=== PATIENT | female | born 1965 | race Caucasian/White ===

== ENCOUNTER → 2017-10-01 15:27 | Outpatient (REF) | payer OTHER, SELFPAY ==
[2017-10-01 18:51] LABS: Amphetamine/Metha Screen,Urine Negative ng/mL (<1000); Barbiturates Screen,Urine Negative ng/mL (<200); Benzodiazepines Screen,Urine Negative ng/mL (200); Cannabinoid Screen,Urine Negative ng/mL (<50); Cocaine Screen,Urine Negative ng/g (<300); Methadone Screen,Urine Negative ng/mL (<300); Opiate Screen,Urine Negative ng/mL (<300); Phencyclidine Screen,Urine Negative ng/mL (<25)
== END ==
LOC: LAB 15:27
PROVIDERS: Visit Provider Nurse Practitioner Family
DX: Z79.899 Other long term (current) drug therapy (principal)
CPT/HCPCS: 80305

== ENCOUNTER → 2019-03-19 17:38 | Outpatient (CLI) | payer OTHER, SELFPAY ==
[2019-03-19 19:32] LABS: Basophils # 0.1 K/mm3 (0-0.2); Basophils % 0.8 % (0.1-2.0); Eosinophils # 0.1 K/mm3 (0.0-0.4); Eosinophils % 0.7 % (0.1-12.0); Hematocrit 40.1 % (37.0-47.0); Hemoglobin 12.9 g/dL (12.2-16.2); Lymphocytes # 3.3 K/mm3 (0.7-4.5); Lymphocytes % 29.2 % (10-50); Mean Corpuscular HGB Conc 32.2 g/dL (31.8-35.4); Mean Corpuscular Hemoglobin 29.9 pg (27.0-31.2); Mean Corpuscular Volume 92.7 fl (81-99); Monocytes # 0.6 K/mm3 (0.1-1.0); Monocytes % 5.1 % (1.7-9.3); Neutrophils # 7.3 K/mm3 (1.8-7.8); Neutrophils % 64.2 % (37.0-80.0); Platelet Count 316 K/mm3 (142-424); Red Blood Count 4.33 M/mm3 (4.20-5.40); Red Cell Distribution Width 13.3 % (11.5-17.5); White Blood Count 11.4 K/mm3 (4.8-10.8)
[2019-03-19 20:37] LABS: Amphetamine/Metha Screen,Urine Negative ng/mL (<1000); Barbiturates Screen,Urine Negative ng/mL (<200); Benzodiazepines Screen,Urine Negative ng/mL (<200); Cannabinoid Screen,Urine Negative ng/mL (<50); Cocaine Screen,Urine Negative ng/mL (<300); Methadone Screen,Urine Negative ng/mL (<300); Opiate Screen,Urine Negative ng/mL (<300); Phencyclidine Screen,Urine Negative ng/mL (<25)
[2019-03-19 21:02] LABS: Alanine Aminotransferase 25 U/L (12-78); Albumin Level 3.7 gm/dL (3.4-5.0); Alkaline Phosphatase 72 U/L (46-116); Anion Gap 16.1 mEq/L (5-15); Aspartate Amino Transferase 14 U/L (15-37); Bilirubin,Total 0.3 mg/dL (0.2-1.0); Blood Urea Nitrogen 19 mg/dL (7-18); Calcium 9.3 mg/dL (8.5-10.1); Carbon Dioxide 23 mmol/L (21.0-32.0); Chloride 103 mmol/L (98-107); Creatinine,Serum 0.92 mg/dL (0.55-1.02); Estimated Glomerular Filt Rate 64 ml/min (>60); GFR (African American) 78 ML/MIN (>60); Globulin 3.6 gm/dl (1.3-3.2); Glucose 82 mg/dL (74-106); Potassium 4.1 mmoL/L (3.5-5.1); Sodium 138 mmol/L (136-145); Thyroid Stimulating Hormone 2.22 uIU/ml (0.358-3.740); Total Protein,Serum 7.3 gm/dL (6.4-8.2)
[2019-03-21 18:46] LABS: Vitamin D 25 Hydroxy 36.8 ng/mL (30.0-100.0)
== END ==
PROVIDERS: Visit Provider Nurse Practitioner Family
DX: R53.83 Other fatigue (principal); Z79.899 Other long term (current) drug therapy
CPT/HCPCS: 80053; 80305; 82652; 84439; 84443; 85025

== ENCOUNTER 2021-01-31 10:37 | Emergency (ER) | payer OTHER, SELFPAY ==
[2021-01-31 10:47] VITALS: BP 112/93; PULSE 82; RESP 19; O2SAT 100; BMI 38.0
[2021-01-31 10:56] VITALS: BP 112/93; PULSE 82; RESP 19; TEMP 36.7; O2SAT 98
[2021-01-31 11:15] LABS: Apearance,Urine Clear (Clear); Bilirubin,Urine Negative (Negative); Blood, Urine Negative (Negative); Color,Urine Yellow (Yellow); Glucose,Urine (UA) Negative (Negative); Ketones,Urine Negative (Negative); PH,Urine 6.5 (5.0-8.5); Protein,Urine Negative (Negative); UTC Leukocyte Esterase,Urine Negative (Negative); UTC Nitrate,Urine Negative (Negative); Urobilinogen,Urine 0.2 EU/dl (0.2)
--- NOTE | 2021-01-31 11:18 | HMH.EDGENADL ---
ED Disposition Clinical Impression: Low back pain Qualifiers: Chronicity: acute Back pain laterality: bilateral Sciatica presence: without sciatica Qualified Code(s): M54.5 - Low back pain Disposition: Home, Self-Care Condition on Discharge: Good Instructions: Low Back Pain, DI for Low Back Pain Additional Instructions: Go home and rest. It would be best if you rested tomorrow too. No heavy lifting. No twisting. Take the oral medications as directed. The muscle relaxer (cyclobenzaprine) will make you drowsy, so don't drive or operate heavy machinery after taking it. Don't start the oral steroids (medrol dose pack) until tomorrow, since you had the shots in here today. Follow up with your regular doctor. GO TO THE ER FOR ANY WORSENING SYMPTOMS OR CONCERN, ESPECIALLY BOWEL OR BLADDER ISSUES, SADDLE AREA NUMBNESS, FEVER, ETC Prescriptions: Cyclobenzaprine HCl [Cyclobenzaprine 10mg Tab] 10 mg PO BIDP PRN #20 tab PRN Reason: Muscle Spasm Transmission Status: Received by [facility] methylPREDNISolone [Medrol] 4 mg PO DIRECTED 6 Days #21 tab.ds.pk Transmission Status: Received by [facility] Referrals: Cesario Benjamin MD [Primary Care Provider] - Forms: Work/School Release Time of Disposition: 11:39 - Critical Care Critical Care Time: No Attestation: On 01/31/21, the high probability of a clinically significant, sudden or life threatening deterioration of the following system(s) required my full and direct attention, intervention and personal management. The time I documented below is in addition to time spent performing reported procedures but includes the following listed in this critical care notation. Medical Decision Making - Medical Records Medical records reviewed: No: I reviewed the patient's medical records. - Jaron Inquiry Pt receiving controlled substance: No Vital Signs: 01/31/21 10:47 01/31/21 10:56 Temperature 98.1 F Pulse Rate 82 Pulse Rate [Left Brachial] 82 Respiratory Rate 19 19 Blood Pressure 112/93 H Blood Pressure [Left Arm] 112/93 H Blood Pressure Mean [Left Arm] 99 Blood Pressure Source [Left Arm] Automatic Cuff Blood Pressure Position [Left Arm] Sitting 02 Sat by Pulse Oximetry 100 Oxygen Delivery Method Room Air - Lab Data Lab results reviewed: Yes: I reviewed the patient's lab results. Lab Results 01/31/21 11:14: Urine Color Yellow, Urine Appearance Clear, Urine pH 6.5, Ur Specific [place] 1.020, Urine Protein Negative, Urine Glucose (UA) Negative, Urine Ketones Negative, Urine Blood Negative, Urine Nitrate Negative, Urine Bilirubin Negative, Urine Urobilinogen 0.2, Ur Leukocyte Esterase Negative Orders (Tests/Meds): ED MEDICATIONS Discontinued Medications Generic Name Dose Route Start Last Admin Trade Name Ari PRN Reason Stop Dose Admin Ketorolac Tromethamine 30 mg 01/31/21 11:30 01/31/21 11:36 Ketorolac 60mg/2ml Vial IM 01/31/21 11:31 30 mg ONCE ONE Administration Methylprednisolone Sodium Succinate 125 mg 01/31/21 11:30 01/31/21 11:35 Methylprednisolone Sod Succ 125mg Vial IM 01/31/21 11:31 125 mg ONCE ONE Administration General Adult HPI - General Chief complaint: PAIN Stated complaint: back pain Time Seen by Provider: 01/31/21 10:50 Mode of Arrival: Ambulatory Source of Information: Patient Description of Symptoms (Recalled from ER Triage Doc. by RN): lower back pain, stiffness - History of Present Illness HPI narrative: She states that she has had low back pain since yesterday. She denies any injury. She has had similar episodes of pain before. She denies any bowel or bladder issues. - Related Data Home Medications Medication Instructions Recorded Confirmed Atorvastatin Calcium [Lipitor 10mg See Rx Instructions .ROUTE .COMPLEX 01/31/21 01/31/21 Tab] Losartan Potassium [Cozaar 50mg 50 mg PO DAILY 01/31/21 01/31/21 Tablets] hydroCHLOROthiazide 12.5
== END 2021-01-31 11:45 | disposition home or self-care (01) ==
PROVIDERS: Emergency Provider Nurse Practitioner Family; PCP Emergency Medicine
DX: M54.5 Low back pain (principal); E11.9 Type 2 diabetes mellitus without complications; E78.5 Hyperlipidemia, unspecified; I10 Essential (primary) hypertension; F41.8 Other specified anxiety disorders; Z79.899 Other long term (current) drug therapy
CPT/HCPCS: 81003; 96372; 99202; G0463

== ENCOUNTER 2021-08-12 02:48 | Emergency (ER) | payer OTHER, SELFPAY ==
[2021-08-12 02:49] VITALS: BP 166/98; PULSE 83; RESP 18; TEMP 36.6; O2SAT 99; BMI 37.2
[2021-08-12 03:03] VITALS: BMI 37.2
[2021-08-12 03:09] LABS: Coronavirus 19, PCR Not Detected (NotDetected); Influenza A, PCR Not Detected (NotDetected); Influenza B, PCR Not Detected (NotDetected)
[2021-08-12 03:18] LABS: Strep Scrn Group A (Rapid) Negative (Negative)
--- NOTE | 2021-08-12 03:50 | HMH.EDURI ---
ED Disposition Clinical Impression: Uvulitis Disposition: Home, Self-Care Condition on Discharge: Good Instructions: Sore Throat Additional Instructions: gargle and use meds and see pcp for follow up Prescriptions: cephALEXin [cephALEXin 500mg capsule*] 500 mg PO TID #30 cap Transmission Status: Pending to [facility] predniSONE [Prednisone 20mg Tab] 20 mg PO BID #10 tab Transmission Status: Pending to [facility] Referrals: Cesario Benjamin MD [Primary Care Provider] - - Critical Care Critical Care Time: No Attestation: On 08/12/21, the high probability of a clinically significant, sudden or life threatening deterioration of the following system(s) required my full and direct attention, intervention and personal management. The time I documented below is in addition to time spent performing reported procedures but includes the following listed in this critical care notation. Medical Decision Making - Medical Records Medical records reviewed: Yes: I reviewed the patient's medical records. - Jaron Inquiry Pt receiving controlled substance: No Vital Signs: 08/12/21 02:49 Temperature 98 F Temperature Source Oral Pulse Rate [Left] 83 Respiratory Rate 18 Blood Pressure [Right Arm] 166/98 H Blood Pressure Mean [Right Arm] 120 02 Sat by Pulse Oximetry 99 - Lab Data Lab results reviewed: Yes: I reviewed the patient's lab results. Lab Results 08/12/21 03:00: Group A Strep Rapid Negative 08/12/21 03:00: SARS-CoV-2 (PCR) Not detected, Influenza A Untype (PCR) Not detected, Influenza Type B (PCR) Not detected Orders (Tests/Meds): ED MEDICATIONS Generic Name Dose Route Start Last Admin Trade Name Freq PRN Reason Stop Dose Admin Ceftriaxone Sodium 1 gm 08/12/21 03:46 08/12/21 03:48 Ceftriaxone 1gm Vial IM 08/12/21 03:47 1 gm ONCE ONE Administration Dexamethasone Sodium Phosphate 8 mg 08/12/21 04:00 08/12/21 03:49 Dexamethasone 4mg/Ml 5ml Mdv IM 09/11/21 03:59 8 mg Q6H ROSY Administration Lidocaine HCl 0 ml 08/12/21 03:46 08/12/21 03:48 Lidocaine 1% 5ml Pf Vial IM 08/12/21 03:47 2.1 ml ONCE ONE Administration ORDERS Category Date Time Status Strep Screen Confirmation Stat Micro 08/12/21 03:00 Received URI/Sore Throat HPI - General Chief Complaint: Upper Respiratory Infection Stated Complaint: knot on throat,r ear pain Time Seen by Provider: 08/12/21 03:10 Mode of Arrival: Ambulatory Source of Information: Patient, Medical Record Limitations: No Limitations Description of Symptoms (Recalled from ER Triage Doc. by RN): pt complins of throat pain on the right side sudden onset of symptoms aprox 8pm and got progressivly worse feels like she has something in her throat she need to spit out - History of Present Illness HPI Narrative: sore throat which started this am MD Complaint: sore throat Onset (ago): hour(s) Severity: moderate Able to tolerate fluids by mouth: Yes Associated symptoms: denies other symptoms Treatments prior to arrival: none - Related Data Previous Rx's Medication Instructions Recorded Cyclobenzaprine HCl 10 mg PO BIDP PRN #20 tab 01/31/21 [Cyclobenzaprine 10mg Tab] methylPREDNISolone [Medrol] 4 mg PO DIRECTED 6 Days #21 01/31/21 tab.ds.pk atorvastatin 10 mg tablet See Rx Instructions .ROUTE 03/14/21 .COMPLEX #90 tablet losartan 50 mg tablet 50 mg PO DAILY #90 tab 03/17/21 hydrochlorothiazide 12.5 mg tablet See Rx Instructions .ROUTE 06/21/21 .COMPLEX #90 tab cephALEXin [cephALEXin 500mg 500 mg PO TID #30 cap 08/12/21 capsule*] predniSONE [Prednisone 20mg 20 mg PO BID #10 tab 08/12/21 Tab] Allergies Allergy/AdvReac Type Severity Reaction Status Date / Time No Known Allergies Allergy Verified 02/02/21 10:11 [facility] History - Hepatitis A Screen Drug use history?: No High risk sexual behaviors?: No History of sexually transmitted infection?: No Currently emplo
[2021-08-12 03:56] VITALS: BP 148/97; PULSE 79; RESP 18; TEMP 36.7; O2SAT 99
== END 2021-08-12 04:11 | disposition home or self-care (01) ==
PROVIDERS: Emergency Provider Emergency Medicine; PCP Emergency Medicine
DX: K12.2 Cellulitis and abscess of mouth (principal); F41.8 Other specified anxiety disorders; I10 Essential (primary) hypertension; E78.5 Hyperlipidemia, unspecified
CPT/HCPCS: 87430; 96372; 99282; C9803; U0003; U0005

== ENCOUNTER → 2022-01-16 09:09 | Outpatient (CLI) | payer OTHER, SELFPAY ==
[2022-01-16 09:37] LABS: Basophils # 0.1 K/mm3 (0-0.2); Basophils % 1.5 % (0.1-2.0); Eosinophils # 0.1 K/mm3 (0.0-0.4); Eosinophils % 1.5 % (0.1-12.0); Hematocrit 42.5 % (37.0-47.0); Hemoglobin 13.9 g/dL (12.2-16.2); Lymphocytes # 2.7 K/mm3 (0.7-4.5); Mean Corpuscular HGB Conc 32.7 g/dL (31.8-35.4); Mean Corpuscular Hemoglobin 29.6 pg (27.0-31.2); Mean Corpuscular Volume 90.5 fl (81-99); Mean Platelet Volume 7.6 fl (7.4-10.4); Monocytes # 0.5 K/mm3 (0.1-1.0); Monocytes % 6.8 % (1.7-9.3); Neutrophils # 3.9 K/mm3 (1.8-7.8); Neutrophils % 53.1 % (37.0-80.0); Platelet Count 299 K/mm3 (142-424); Red Blood Count 4.69 M/mm3 (4.20-5.40); Red Cell Distribution Width 13.9 % (11.5-17.5); White Blood Count 7.4 K/mm3 (4.8-10.8)
[2022-01-16 10:14] LABS: Alanine Aminotransferase 56 U/L (12-78); Albumin/Globulin Ratio 1.4 (1.1-1.8); Alkaline Phosphatase 106 U/L (38-126); Anion Gap 10.6 mEq/L (5-15); Aspartate Amino Transferase 58 U/L (14-36); Bilirubin,Total 0.3 mg/dl (0.2-1.3); Blood Urea Nitrogen 21 mg/dl (7-17); Calcium 9.3 mg/dl (8.4-10.2); Carbon Dioxide 29 mmol/L (22.0-30.0); Chloride 102 mmol/L (98-107); Chol/HDL Ratio 3.3 (1-3.5); Cholesterol 184 mg/dl (140-200); Estimated Glomerular Filt Rate 75 ml/min (>60); GFR (African American) 90 ML/MIN (>60); Globulin 2.8 g/dL (1.3-3.2); Glucose 97 mg/dl (74-100); HDL Cholesterol 55 mg/dl (40-60); Potassium 4.6 mmoL/L (3.5-5.1); Sodium 137 mmol/L (136-145); Total Protein,Serum 6.8 g/dl (6.3-8.2); Triglycerides 112 mg/dl (30-150); VLDL Cholesterol 22 mg/dL (0-40)
[2022-01-16 10:24] LABS: Direct LDL Cholesterol 103.18 mg/dL (100-129)
[2022-01-16 10:30] LABS: 25-OH Vitamin D, Total 60.8 ng/mL (30-100)
[2022-01-16 10:31] LABS: T4 (Thyroxine) 14.1 ug/dl (5.53-11.0)
== END ==
LOC: LAB 09:10
PROVIDERS: Visit Provider Nurse Practitioner Family
DX: I10 Essential (primary) hypertension (principal); E78.5 Hyperlipidemia, unspecified; E66.9 Obesity, unspecified; Z68.37 Body mass index [BMI] 37.0-37.9, adult
CPT/HCPCS: 36415; 80053; 80061; 82306; 84436; 84443; 85025

== ENCOUNTER 2022-01-19 18:28 | Emergency (ER) | payer OTHER, SELFPAY ==
[2022-01-19 18:48] VITALS: BP 149/87; PULSE 78; RESP 19; TEMP 36.8; O2SAT 99; BMI 37.2
--- NOTE | 2022-01-19 19:40 | HMH.EDUTC ---
[facility] [place] Clinical Impression: Elevated blood pressure reading Disposition: Home, Self-Care Condition on Discharge: Good Instructions: Essential Hypertension Additional Instructions: Follow up with your primary care provider to discuss your blood pressure readings and to adjust your medication. GO TO THE ER FOR ANY WORSENING SYMPTOMS OR CONCERNS Referrals: Gurdeep Naidu APRN [Primary Care Provider] - Time of Disposition: 19:52 Medical Decision Making - Medical Records Medical records reviewed: No: I reviewed the patient's medical records. - Jaron Inquiry Pt receiving controlled substance: No Jaron was queried for this patient: No Vital Signs: 01/19/22 18:48 01/19/22 20:14 Temperature 98.2 F 98.2 F Temperature Source Oral Pulse Rate 78 Pulse Rate [Left Radial] 78 Respiratory Rate 19 19 Blood Pressure 149/87 H Blood Pressure [Right Arm] 149/87 H Blood Pressure Mean [Right Arm] 107 02 Sat by Pulse Oximetry 99 - Lab Data Lab results reviewed: Yes: I reviewed the patient's lab results. [facility] [place] - General Stated complaint: hd/N Time Seen by Provider: 01/19/22 19:40 Source of Information: Patient Description of Symptoms (Recalled from Triage Doc. by RN): patient comes in with complaints of high blood pressure readings today, headache, and tiredness. HEENT Symptoms (Recalled from RN notes): Yes Resp Symptoms (Recalled from RN notes): No Skin Symptoms (Recalled from RN notes): No MS Symptoms (Recalled from RN notes): No Functional Status (Recalled from RN notes): wnl - History of Present Illness Provider Complaint: She states that she recently missed around 2 weeks of her blood pressure medication (losartan 50 mg). She has been back on it for the past 5 days, but she has been getting significantly elevated blood pressure readings since restarting on it. She denies any chest pain, shortness of breath and head ache. - Related Data Previous Rx's Medication Instructions Recorded atorvastatin 10 mg tablet See Rx Instructions .ROUTE 01/09/22 .COMPLEX #90 tablet hydrochlorothiazide 12.5 mg tablet See Rx Instructions .ROUTE 01/09/22 .COMPLEX #90 tab losartan 50 mg tablet 50 mg PO DAILY #90 tab 01/09/22 Allergies Allergy/AdvReac Type Severity Reaction Status Date / Time No Known Allergies Allergy Verified 01/19/22 18:51 - Worker's Comp Is this a Worker's Comp case?: No [facility] History - Hepatitis A Screen Attestation statement:: This patient has been screened for Hepatitis A risk factors. I have reviewed the patient's past medical history: Yes Medical History: Reports:: Anxiety, Depression, Diabetes Mellitus Type 2, Hyperlipidemia, Hypertension Denies:: Cancer, Diabetes Mellitus Type 1, Internal Pacemaker, MRSA Other Surgeries: Yes: Diagnostic Lap, Tubal Ligation. No: Pacemaker Amputation: No Fractures: No - Social History Smoking Status: Never smoker Alcohol Intake: never Alcohol Intake Frequency:: a few times a month Substance Use Type: denies use Occupational Status: employed Housing: house Household Members: family - Psychiatric History Pschychiatric History:: Reports:: Anxiety, Depression Family Hx:: Hyperlipidemia, Hypertension, Cancer, Heart Attack Comment: HEART DISEASE ROS Obtained: Yes All systems reviewed & no additional complaints - Constitutional Constitutional: Denies chills, Denies fever(s), Denies poor appetite, Denies malaise - Eyes Eyes: Denies eye discharge - ENT Ears, Nose, Mouth, and Throat: Denies dizziness, Denies otalgia, Denies sore throat - Cardiovascular Cardiovascular: Denies chest pain - Respiratory Respiratory: Denies chest congestion, Denies cough, Denies dyspnea, Denies stridor, Denies wheezing - Gastrointestinal Gastrointestingal: Denies: abdominal pain, diarrhea, excessive passing of gas, nausea, vomiting - Musculoskeletal Musculoskeletal: Denies joint pain - Integumentary/Breasts Skin/Breast: De
[2022-01-19 20:14] VITALS: BP 149/87; PULSE 78; RESP 19; TEMP 36.8
== END 2022-01-19 20:19 | disposition home or self-care (01) ==
PROVIDERS: Emergency Provider Nurse Practitioner Family; PCP Nurse Practitioner Family
DX: R03.0 Elevated blood-pressure reading, without diagnosis of hypertension (principal)
CPT/HCPCS: 99212; G0463

== ENCOUNTER 2025-05-24 12:45 | Outpatient (CLI) | payer BC, SELFPAY ==
--- OUTSIDE RECORDS SUMMARY | 2025-04-01 08:20 | XMS_ITS | Encounter Summary ---
Author Organization [facility] Address [address] [place] [address] Care Team Providers Care Drawer Waxer Name Role Phone Larry Mclaughlin MD Primary Care Provider [phone] Reason for Referral * Diagnostic Imaging (Routine) - Closed Specialty Diagnoses / Procedures Referred By Jeison smith Referred To Contact Radiology Diagnoses Screening mammogram for breast cancer Procedures Mammo Screening Digital Tomosynthesis Bilateral With CAD Keven Varela MD [address] [facility] [address] [place] [address] Phone: tel: fax: Referral ID Status Reason Start Date Expiration Date Visits Re quested Visits Authorized Closed 03/03/2025 06/02/2026 1 1 Reason for Visit * Diagnostic Imaging (Routine) - Closed Specialty Diagnoses / Procedures Referred By Jeison smith Referred To Contact Radiology Diagnoses Screening mammogram for breast cancer Procedures Mammo Screening Digital Tomosynthesis Bilateral With CAD Keven Varela MD [address] [facility] [address] [place] [address] Phone: tel: fax: Referral ID Status Reason Start Date Expiration Date Visits Re quested Visits Authorized Closed 03/03/2025 06/02/2026 1 1 Encounter Details Date Type Department Care Team (Late st Contact Info) Description 04/01/2025 8:20 AM EDT - 04/01/2025 11:59 PM EDT Hospital Encounter [facility] [address] [place] [address] Keven Varela MD [address] [facility] [address] [place] [address] Screening mammogram for breast cancer Discharge Disposition: Home or Self Care Social History Tobacco Use Types Packs/Day Years Used Date Smoking Tobacco: Never Smokeless Tobacco: Never Alcohol Use Standard Drinks/Week Comments Not Currently 0 (1 standard drink = 0.6 oz pure alcohol) Havent had any alcohole in 4 months PHQ-2 Answer Date Recorded Retired PHQ-9: Brief Depression Severity Measure Score 0 01/21/2023 PHQ-2 Answer Date Recorded Patient Health Questionnaire-2 Score 0 08/25/2024 Comments No Sex and Gender Information Value Date Recorded Sex Assigned at Female 12/18/2024 12:47 PM EDT Legal Sex Female 9:03 AM EDT Gender Identity Not on file Sexual Orientation Straight 12/18/2024 12 :47 PM EDT documented as of this encounter Medications at Time of Discharge amphetamine-dextroa mphetamine XR (Adderall XR) 30 MG 24 hr capsuleIndications: Attention deficit hyperactivity disorder (ADHD), predominantly inattentive type Take 1 capsule by mouth Every Morning 30 capsule 03/01/2025 5 atorvastatin (LIPITOR) 10 MG tablet Take 1 tablet by mouth Every Night. 90 tablet 2 08/13/2024 5 hydroCHLOROthiazide 12.5 MG tablet TAKE ONE TABLET BY MOUTH 2 TIMES A DAY 60 tablet 1 02/04/2025 5 losartan (COZAAR) 50 MG tablet Take 1 tablet by mouth 2 (Two) Times a Day. 180 tablet 1 11/02/2024 5 documented as of this encounter Plan of Treatment Not on file documented as of this encounter Procedures Procedure Name Priority Date/Time Associated Diagnosis Comments MAMMO SCREENING DIGITAL TOMOSYNTHESIS BILATERAL W CAD Routine 04/01/2025 8:50 AM EDT Screening mammogram for breast cancer documented in this encounter Results * (ABNORMAL) Mammo Screening Digital Tomosynthesis Bilateral With CAD (04/01/2025 8:50 AM EDT) Anatomical Region Laterality Modality Breast N/A Mammography 04/02/2025 8:57 AM EDT Impressions 04/02/2025 9:03 AM EDT Impression: BI-RADS 0 Incomplete: Need additional imaging evaluation Recommendation: The patient needs additional imaging. Routine right ML, spot compression MLO, and spot compression cc views with tomosynthesis are advised for the 2 focal asymmetries in the right breast. Magnification ML and cc views are advised for the focal asymmetry containing calcifications in the right breast. Ultrasound is advised if the findings persist. She will be contacted by our office to schedule an appointment for the additional studies. Please accept this as an order. CAD was utilized. The standard false-negative rate of mammography is between 10% and 25%. Complex patterns or increased breast density will markedly elevate the false-negative rate of mammography. A letter, in lay terminology, with the results of this exam will be mailed to the patient. 04/02/2025 9:[address] Marc Matos MD on Narrative 04/02/2025 9:03 AM EDT DIGITAL SCREENING MAMMOGRAM WITH TOMOSYNTHESIS HISTORY: Screening Mammography. Low dose full field digital breast tomosynthesis imaging was performed with 2D and 3D acquisitions consisting of bilateral CC and MLO views. No prior studies are available for comparison. Baseline exam. Examination is read in conjunction with computer aided detection. FINDINGS: There are scattered areas of fibroglandular density. The breasts are symmetric in appearance. There is a focal asymmetry containing calcifications measuring 5 mm in the right breast upper outer quadrant, 7 cm from the nipple. There is a 6 mm focal asymmetry in the upper outer quadrant of the right breast, 8 cm from the nipple. There is a 6 mm focal asymmetry in the lower inner quadrant of the right breast, 4 cm from the nipple. Otherwise, no worrisome masses, calcifications, or architectural distortion is identified bilaterally. Keven Varela MD IMG MAMMOGRAPHY ORDERABLES Fi nal Result documented in this encounter Visit Diagnoses Diagnosis Screening mammogram for breast cancer documented in this encounter Care Teams Drawer Waxer Relationship Specialty Start Date End Date Larry Mclaughlin MD [address] [place] [address] PCP - General Internal Medicine 03/20/22 documented as of this encounter
--- OUTSIDE RECORDS SUMMARY | 2025-04-16 09:15 | XMS_ITS | Encounter Summary ---
Author Organization [facility] Address [address] [place] [id number] Care Team Providers Care Policy Advisor Name Role Phone Larry Mclaughlin MD Primary Care Provider [phone] Reason for Referral * Diagnostic Imaging (Routine) - Closed Specialty Diagnoses / Procedures Referred By Jeison smith Referred To Contact Radiology Diagnoses Abnormal mammogram Procedures Mammo Diagnostic Digital Tomosynthesis Right With Keven Galeas MD [address] [place] [address] Phone: tel: fax: Referral ID Status Reason Start Date Expiration Date Visits Re quested Visits Authorized Closed 04/05/2025 07/05/2026 1 1 Reason for Visit * Diagnostic Imaging (Routine) - Closed Specialty Diagnoses / Procedures Referred By Jeison smith Referred To Contact Radiology Diagnoses Abnormal mammogram Procedures Mammo Diagnostic Digital Tomosynthesis Right With Keven Galeas MD [address] [place] [address] Phone: tel: fax: Referral ID Status Reason Start Date Expiration Date Visits Re quested Visits Authorized Closed 04/05/2025 07/05/2026 1 1 Encounter Details Date Type Department Care Team (Latest Contact Info) Description 04/16/2025 9:15 AM EDT - 04/16/2025 11:59 PM EDT Hospital Encounter [facility] [place] [address] [place] [address] Abnormal mammogram Discharge Disposition: Home or Self Care Social [...] this encounter Medications at Time of Discharge hydroCHLOROthiazide 12.5 MG tablet TAKE ONE TABLET BY MOUTH 2 TIMES A DAY 60 tablet 3 04/08/2025 amphetamine-dextroa mphetamine XR (Adderall XR) 30 MG 24 hr capsuleIndications: Attention deficit hyperactivity disorder (ADHD), predominantly inattentive type Take 1 capsule by mouth Every Morning 30 capsule 04/05/2025 5 atorvastatin (LIPITOR) 10 MG tablet Take 1 tablet by mouth Every Night. 90 tablet 2 08/13/2024 5 losartan (COZAAR) 50 MG tablet Take 1 tablet by mouth 2 (Two) Times a Day. 180 tablet 1 11/02/2024 5 documented as of this encounter Plan of Treatment Not on file documented as of this encounter Procedures Procedure Name Priority Date/Time Associated Diagnosis Comments MAMMO DIAGNOSTIC DIGITAL TOMOSYNTHESIS RIGHT W CAD Routine 04/16/2025 9:40 AM EDT Abnormal mammogram documented in this encounter Results * Mammo Diagnostic Digital Tomosynthesis Right With CAD (04/16/2025 9:40 AM EDT) Anatomical Region Laterality Modality Breast Right Mammography 04/16/2025 11:1 1 AM EDT Impressions 04/16/2025 1:51 PM EDT Simple cyst, benign. Probably benign microcalcifications upper outer right breast. ACR BI-RADS CATEGORY: 3, PROBABLY BENIGN RECOMMENDATION: A single 6-month diagnostic mammogram is recommended to document stability of the glandular pattern as well as microcalcifications with magnification views as well. CAD was utilized. The standard false-negative rate of mammography is between 10% and 25%. Complex patterns or increased breast density will markedly elevate the false-negative rate of mammography. A letter, in lay terminology, with the results of this exam was given to the patient at the time of the visit. _ Physician Order Diagnostic 6 Month follow up Mammogram with Breast Ultrasound if needed. Diagnosis: Abnormal Mammogram 04/16/2025 1:51 PM by Jimena Garrido MD on Narrative 04/16/2025 1:51 PM EDT RIGHT DIGITAL DIAGNOSTIC MAMMOGRAM WITH TOMOSYNTHESIS AND DIAGNOSTIC TARGETED RIGHT BREAST ULTRASOUND CLINICAL HISTORY: Focal asymmetry containing calcifications in the right breast upper outer quadrant 7 cm from the nipple. Focal asymmetry in the upper outer quadrant 8 cm from the nipple as well as a focal asymmetry lower inner quadrant of the right breast. TECHNIQUE: 2D and tomosynthesis spot compression CC and MLO views were obtained. 2D and tomosynthesis right ML. COMPARISON: Recent screening exam. MAMMOGRAM FINDINGS: There are scattered areas of fibroglandular density. Multiple oval masses persist within the upper outer quadrant and lower inner quadrant. On magnification views grouped round calcifications are noted upper outer quadrant. ULTRASOUND FINDINGS: Targeted ultrasound was performed by myself as well as the technologist. Simple cysts are noted on the right specifically at the 5 o'clock position 4 cm from the nipple measuring 0.9 cm and at the 11 o'clock position 8 cm from the nipple measuring 0.5 cm please correlate nicely with the mammographic findings. us Marc Matos MD IMG MAMMOGRAPHY ORDERABLES Final Result documented in this encounter Visit Diagnoses Diagnosis Abnormal mammogram Abnormal mammogram, unspecified documented in this encounter Care Teams Policy Advisor Relationship Specialty Start Date End Date Larry Mclaughlin MD [address] [facility] [address] [place] [address] PCP - General Internal Medicine 03/20/22 documented as of this encounter
--- OUTSIDE RECORDS SUMMARY | 2025-04-16 10:37 | XMS_ITS | Encounter Summary ---
Author Organization [facility] Address [address] [place] [address] Care Team Providers Care Speech Language Pathologist Name Role Phone Larry Mclaughlin MD Primary Care Provider [phone] Reason for Referral * Diagnostic Imaging (Routine) - Closed Specialty Diagnoses / Procedures Referred By Jeison smith Referred To Contact Radiology Diagnoses Abnormal mammogram Procedures US Breast Right Limited Keven Varela MD [address] [facility] [address] [place] [address] Phone: tel: fax: Referral ID Status Reason Start Date Expiration Date Visits Re quested Visits Authorized Closed 04/16/2025 07/16/2026 1 1 Reason for Visit * Diagnostic Imaging (Routine) - Closed Specialty Diagnoses / Procedures Referred By Jeison smith Referred To Contact Radiology Diagnoses Abnormal mammogram Procedures US Breast Right Limited Keven Varela MD [address] [facility] [address] [place] [address] Phone: tel: fax: Referral ID Status Reason Start Date Expiration Date Visits Re quested Visits Authorized Closed 04/16/2025 07/16/2026 1 1 Encounter Details Date Type Department Care Team (Latest Contact Info) Description 04/16/2025 10:37 AM EDT - 04/16/2025 11:59 PM EDT Hospital Encounter [facility] [address] [facility] [address] [place] [address] Abnormal mammogram Discharge Disposition: Home [...] Procedure Name Priority Date/Time Associated Diagnosis Comments US BREAST RIGHT LIMITED Routine 04/16/2025 11:14 AM EDT Abnormal mammogram documented in this encounter Results * US Breast Right Limited (04/16/2025 11:14 AM EDT) Anatomical Region Laterality Modality Breast Right Ultrasound 04/16/2025 11:1 1 AM EDT Impressions 04/16/2025 [...] correlate nicely with the mammographic findings. us Jimena Garrido MD IMG US ORDERABLES Final Result documented in this encounter Visit Diagnoses Diagnosis Abnormal mammogram Abnormal mammogram, unspecified documented in this encounter Care Teams Speech Language Pathologist Relationship Specialty Start Date End Date Larry Mclaughlin MD 100 [place] [address] PCP - General Internal Medicine 03/20/22 documented as of this encounter
--- OUTSIDE RECORDS SUMMARY | 2025-04-22 13:00 | XMS_ITS | Encounter Summary ---
[facility] Address [address] [place] [id number] Care Team Providers Care Device Sales Consultant Name Role Phone Larry Mclaughlin MD Primary Care Provider [phone] Encounter Details Date Type Department Care Team (Late st Contact Info) Description 04/22/2025 1:00 PM EDT Telemedicine [facility] INTER[facility] MED[facility]INE & PEDIATRICS [address] [address] Larry Mclaughlin MD [address] [address] Attention deficit hyperactivity disorder (ADHD), predominantly inattentive type (Primary Dx); Abnormal mammogram Social History Tobacco Use Types Packs/Day Years [...] PM EDT documented as of this encounter Progress Notes * Larry Mclaughlin MD - 04/22/2025 1:00 PM EDT Chief Complaint No chief complaint on file. Subjective Ginny Michael is a 60 y.o. female. Ginny Michael presents to [facility]ATRICS for History of Present Illness The patient presents for a checkup. She reports no current health issues and is currently managing well with Adderall. Recently, she underwent a mammogram followed by a diagnostic mammogram at [facility]. The results revealed threespots on her right breast, one located underneath and two on top. She was informed that these findings are likely benign and will be rechecked in six months. Her last mammogram was conducted nearly 30 years ago, following the of her child. She has a preoperative appointment scheduled for 05/24/2025 and a breast reduction surgery planned for 06/11/2025. She intends to consult with Dr. Varela regarding the mammogram results and the feasibility of proceeding with the breast reduction surgery. MEDICATIONS CURRENT MEDS: Adderall The following portions of the patient's history were reviewed and updated as appropriate: allergies, current medications, past family history, past medical history, past social history, past surgicalhistory, and problem list. Review of Systems All other systems reviewed and are negative. Objective There is no height or weight on file to calculate BMI. BMI cannot be calculated due to outdated height or weight values. Please input a current height/weight in Vitals and re-renter BMIFOLLOWUP in Note to pull in correct documentation based on BMI range. Vital Signs: There were no vitals taken for this visit. Physical Exam Patient is alert x3, no distress. Moist membranes. No reports of any cough or congestion. No reports of any palpitation, chest pain. No active issues here today. Results Imaging Three spots found on right breast, likely benign. Assessment and Plan Diagnoses and all orders for this visit: Assessment & Plan 1. Attention deficit hyperactivity disorder (ADHD). She is responding well to the current Adderall regimen, with no changes in dosage required. 2. Breast nodule. Three spots were found on her right breast, which are probably benign. A repeat mammogram is scheduled in 6 months to monitor any changes. She is also scheduled for breast reduction surgery on 06/11/2025. Continued follow-up is necessary to ensure no changes occur in the nodules before proceeding with the surgery. Follow-up The patient will follow up in 4 to 6 months. Diagnoses and all orders for this visit: 1. Attention deficit hyperactivity disorder (ADHD), predominantly inattentive type (Primary) 2. Abnormal mammogram Follow Up No follow-ups on file. Patient was given instructions and counseling regarding her condition or for health maintenance advice. Please see specific information pulled into the AVS if appropriate. Patient or patient access services representative verbalized consent for the use of Ambient Listening during the visit with Larry Mclaughlin MD for chart documentation. 04/22/2025 13:20 EDT documented in this encounter Plan of Treatment Not on file documented as of this encounter Visit Diagnoses Diagnosis Attention deficit hyperactivity disorder (ADHD), predominantly inattentive type- Primary Abnormal mammogram Abnormal mammogram, unspecified documented in this encounter Care Teams Device Sales Consultant Relationship Specialty Start Date End Date Larry Mclaughlin MD [address] [address] PCP - General Internal Medicine 03/20/22 documented as of this encounter
--- OUTSIDE RECORDS SUMMARY | 2025-05-24 12:49 | XMS_ITS | Encounter Summary ---
[facility] Address [address] [place] [id number] Care Team Providers Care Survey Questionnaire Designer Name Role Phone Larry Mclaughlin MD Primary Care Provider [phone] Reason for Visit * Reason Comments Med Refill Encounter Details Date Type Department Care Team (Late st Contact Info) Description 05/02/2025 Refill [facility] INTERNAL MEDICINE & PEDIATRICS 100 [facility] 200 [place] [address] Larry Mclaughlin MD 100 [facility] 200 [place] [address] Social History Tobacco Use Types Packs/Day Years [...] PM EDT documented as of this encounter Plan of Treatment Not on file documented as of this encounter Visit Diagnoses Not on filedocumented in this encounter Care Teams Survey Questionnaire Designer Relationship Specialty Start Date End Date Larry Mclaughlin MD 100 [place] [address] PCP - General Internal Medicine 03/20/22 documented as of this encounter
--- OUTSIDE RECORDS SUMMARY | 2025-05-24 12:49 | XMS_ITS | Encounter Summary ---
Author Organization [facility] Address [address] [place] [id number] Care Team Providers Care Hydraulic Governor Assembler Name Role Phone Larry Mclaughlin MD Primary Care Provider [phone] Reason for Visit * Reason Onset Date Comments Med Refill 04/02/2025 Encounter Details Date Type Department Care Team (Late st Contact Info) Description 04/02/2025 Refill [facility] INTERNAL MEDICINE & [facility]EDIATRICS 100 [facility] 200 [place] [address] Mabel Vang MD 100 [facility] [address] [place] [address] Attention deficit hyperactivity disorder (ADHD), predominantly inattentive type Social History Tobacco Use Types Packs/Day Years [...] PM EDT documented as of this encounter Miscellaneous Notes * Telephone Encounter - Nela Zayas CMA - 04/05/2025 7:25 AM EDT [place]: 08/25/2024 Nov: 04/22/2025 Csa/uds: 08/25/2024 documented in this encounter Plan of Treatment Not on file documented as of this encounter Visit Diagnoses Diagnosis Attention deficit hyperactivity disorder (ADHD), predominantly inattentive type documented in this encounter Care Teams Hydraulic Governor Assembler Relationship Specialty Start Date End Date Larry Mclaughlin MD 100 [place] [address] PCP - General Internal Medicine 03/20/22 documented as of this encounter
--- OUTSIDE RECORDS SUMMARY | 2025-05-24 12:49 | XMS_ITS | Encounter Summary ---
[facility] Address [address] [place] [id number] Care Team Providers Care Apiarist Name Role Phone Larry Mclaughlin MD Primary Care Provider [phone] Reason for Visit * Reason Comments Med Refill Encounter Details Date Type Department Care Team (Late st Contact Info) Description 10/15/2022 Refill [facility] INTER[facility] MEDICINE & [facility]ATRICS 100 [facility] 200 [place] [address] Larry Mclaughlin MD 100 [facility] 200 [place] [address] Attention deficit hyperactivity disorder (ADHD), predominantly inattentive type Social History Tobacco Use Types Packs/Day Years Used Date Smoking Tobacco: Never Alcohol Use Standard Drinks/Week Comments Not Currently 0 (1 standard drink = 0.6 oz pure alcohol) Havent had any alcohole in 4 months PHQ-2 Answer Date Recorded Retired PHQ-9: Brief Depression Severity Measure Score 0 05/09/2022 Comments Unknown Sex and Gender Information Value Date Recorded [...] type documented in this encounter Care Teams Apiarist Relationship Specialty Start Date End Date Larry Mclaughlin MD 100 [place] [address] PCP - General Internal Medicine 03/20/22 documented as of this encounter
--- OUTSIDE RECORDS SUMMARY | 2025-05-24 12:49 | XMS_ITS | Encounter Summary ---
[facility] Organization [facility] Address [address] [place] [phone] Care Team Providers Care Resident Services Supervisor Name Role Phone Larry Mclaughlin MD Primary Care Provider [phone] Reason for Visit * Reason Onset Date Comments Med Refill 05/13/2025 Encounter Details Date Type Department Care Team (Late st Contact Info) Description 05/13/2025 Refill [facility] INTERNAL MEDICINE & [facility]ATRICS 100 [facility] 200 [place] [address] Larry Mclaughlin MD 100 [facility] [address] [place] [address] Social History Tobacco Use Types [...] on filedocumented in this encounter Care Teams Resident Services Supervisor Relationship Specialty Start Date End Date Larry Mclaughlin MD 100 [place] [address] PCP - General Internal Medicine 03/20/22 documented as of this encounter
--- OUTSIDE RECORDS SUMMARY | 2025-05-24 12:49 | XMS_ITS | Encounter Summary ---
[facility] Address [address] [place] [phone] Care Team Providers Care Industrial Property Appraiser Name Role Phone Larry Mclaughlin MD Primary Care Provider [phone] Reason for Visit * Reason Onset Date Comments Med Refill 05/05/2025 Encounter Details Date Type Department Care Team (Late st Contact Info) Description 05/05/2025 Refill [facility] INTERNAL MEDICINE & [facility]EDIATRICS 100 [facility] 200 [place] [address] Larry Mclaughlin MD 100 [facility] [address] [place] [address] Attention deficit hyperactivity disorder (ADHD), [...] encounter Miscellaneous Notes * Telephone Encounter - Amy Reyes MA - 05/06/2025 8:01 AM EDT CSA/UDS 08/25/2024 documented in this encounter Plan of Treatment Not on file documented as of this encounter Visit Diagnoses Diagnosis Attention deficit hyperactivity disorder (ADHD), predominantly inattentive type documented in this encounter Care Teams Industrial Property Appraiser Relationship Specialty Start Date End Date Larry Mclaughlin MD [address] [address] PCP - General Internal Medicine 03/20/22 documented as of this encounter
--- OUTSIDE RECORDS SUMMARY | 2025-05-24 12:49 | XMS_ITS | Encounter Summary ---
Author Organization [facility] Address [address] [place] [id number] Care Team Providers Care Hydraulic Technician Name Role Phone Larry Mclaughlin MD Primary Care Provider [phone] Reason for Visit * Reason Onset Date Comments Med Refill 08/29/2022 Encounter Details Date Type Department Care Team (Late st Contact Info) Description 08/29/2022 Refill [facility] INTERNAL MEDICINE & PEDIATRICS 100 [facility] 200 [place] [address] Larry Mclaughlin MD 100 [facility] 200 [place] [address] Social History Tobacco Use Types Packs/Day Years Used Date Smoking Tobacco: Never Alcohol Use Standard Drinks/Week Comments Yes 30 (1 standard drink = 0.6 oz pu re alcohol) PHQ-2 Answer Date Recorded Retired PHQ-9: Brief [...] on filedocumented in this encounter Care Teams Hydraulic Technician Relationship Specialty Start Date End Date Larry Mclaughlin MD 100 [facility] 200 [place] [address] PCP - General Internal Medicine 03/20/22 documented as of this encounter
--- OUTSIDE RECORDS SUMMARY | 2025-05-24 12:49 | XMS_ITS | Encounter Summary ---
[facility] [address] [place] [id number] Care Team Providers Care Tube Blower Name Role Phone Larry Mclaughlin MD Primary Care Provider [phone] Reason for Visit * Reason Comments Med Refill Encounter Details Date Type Department Care Team (Late st Contact Info) Description 04/08/2025 Refill [facility] INTERNAL MEDICINE & PEDIATRICS 100 [facility] 200 [place] [address] Larry Mclaughlin MD 100 [facility] 200 [place] [address] Social History Tobacco Use Types [...] on filedocumented in this encounter Care Teams Tube Blower Relationship Specialty Start Date End Date Larry Mclaughlin MD 100 [place] [address] PCP - General Internal Medicine 03/20/22 documented as of this encounter
--- OUTSIDE RECORDS SUMMARY | 2025-05-24 12:49 | XMS_ITS | Encounter Summary ---
Author Organization [facility] Address [address] [place] [id number] Care Team Providers Care Vocational Education Teacher Name Role Phone Larry Mclaughlin MD Primary Care Provider [phone] Reason for Visit * Reason Comments Med Refill Encounter Details Date Type Department Care Team (Late st Contact Info) Description 05/06/2025 Refill [facility] INTERNAL MEDICINE & PEDIATRICS 100 [facility] 200 [place] [address] Larry Mclaughlin MD 100 [facility] 200 [place] [address] Social History Tobacco Use Types [...] on filedocumented in this encounter Care Teams Vocational Education Teacher Relationship Specialty Start Date End Date Larry Mclaughlin MD 100 [place] [address] PCP - General Internal Medicine 03/20/22 documented as of this encounter
--- OUTSIDE RECORDS SUMMARY | 2025-05-24 12:49 | XMS_ITS | Clinical Summary ---
[facility] [address] [place] [id number] Care Team Providers Care Clay Structure Builder And Servicer Name Role Phone Larry Mclaughlin MD Primary Care Provider [phone] Allergies No known active allergies Medications hydroCHLOROthiazi de 12.5 MG tablet TAKE ONE TABLET BY MOUTH 2 TIMES A DAY 60 tablet 3 04/08/20 25 Active losartan (COZAAR) 50 MG tablet TAKE ONE TABLET BY MOUTH 2 TIMES A DAY 60 tablet 5 05/03/20 25 Active amphetamine-dextr oamphetamine XR (Adderall XR) 30 MG 24 hr capsuleIndication s:Attention deficit hyperactivity disorder (ADHD), predominantly inattentive type Take 1 capsule by mouth Every Morning 30 capsule 05/06/20 25 Active atorvastatin (LIPITOR) 10 MG tablet TAKE ONE TABLET BY MOUTH AT BEDTIME 30 tablet 8 05/06/20 25 Active atorvastatin (LIPITOR) 10 MG tablet Take 1 tablet by mouth Every Night. 90 tablet 2 08/13/20 24 025 Discontinued losartan (COZAAR) 50 MG tablet Take 1 tablet by mouth 2 (Two) Times a Day. 180 tablet 1 11/03/19 25 025 Discontinued amphetamine-dextr oamphetamine XR (Adderall XR) 30 MG 24 hr capsuleIndication s:Attention deficit hyperactivity disorder (ADHD), predominantly inattentive type Take 1 capsule by mouth Every Morning 30 capsule 04/05/20 25 025 Discontinued(Re order) Encounters Date Type Department Care Team Description 05/13/2025 Refill [facility] INTERNAL MEDICINE & PEDIATRICS [address] [facility] 200 [place] [address] Larry Mclaughlin MD 05/06/2025 Refill [facility] INTERNAL MEDICINE & PEDIATRICS [address] [facility] 200 [place] [address] Larry Mclaughlin MD 05/05/2025 Refill [facility] INTER[facility] MED[facility]INE [facility]EDIATRICS [address] [facility] 200 [place] [address] Larry Mclaughlin MD Attention deficit hyperactivity disorder (ADHD), predominantly inattentive type 05/02/2025 Refill [facility] INTERNAL MEDICINE [facility] PEDIATRICS [address] [place] [address] Larry Mclaughlin MD 04/22/2025 1:00 PM EDT Telemedicine [facility] INTERNAL MEDICINE & PEDIATRICS [address] [place] [phone] Larry Mclaughlin MD Attention deficit hyperactivity disorder (ADHD), predominantly inattentive type (Primary Dx); Abnormal mammogram 04/16/2025 10:37 AM EDT - 04/16/2025 11:59 PM EDT Hospital Encounter [facility] [place] [address] [facility] [address] [place] [address] Abnormal mammogram Discharge Disposition: Home or Self Care 04/16/2025 9:15 AM EDT - 04/16/2025 11:59 PM EDT Hospital Encounter [facility]AP[facility] [place] [address] [facility] [address] [place] [address] Abnormal mammogram Discharge Disposition: Home or Self Care 04/16/2025 Travel 04/08/2025 Refill [facility] INTERNAL MEDICINE & PEDIATRICS [address] [place] [address] Larry Mclaughlin MD 04/02/2025 Refill [facility] INTERNAL MEDICINE & PEDIATRICS [address] [facility] 200 [place] [address] Mabel Vang MD Attention deficit hyperactivity disorder (ADHD), predominantly inattentive type 04/01/2025 8:20 AM EDT - 04/01/2025 11:59 PM EDT Hospital Encounter [facility] [address] [place] [address] Keven Varela MD Screening mammogram for breast cancer Discharge Disposition: Home or Self Care 04/01/2025 Travel 02/26/2025 Refill [facility] INTERNAL MEDICINE & PEDIATRICS [address] [facility] [address] [place] [address] Larry Mclaughlin MD Attention deficit hyperactivity disorder (ADHD), predominantly inattentive type from Last 3 Months Immunizations Immunization Administration Dates Next Due Fluzone (or Fluarix & Flulaval for VFC) >6mos ,05/21/2022 Influenza, Unspecified 06/30/2024 Family History Medical History Relation Name Comments ADD / ADHD Daughter 1 Nedra Hyperlipidemia Daughter 1 Nedra ADD / ADHD Daughter 2 lorenzo Pancreatitis Daughter 2 lorenzo ADD / ADHD Daughter 3 Jessa Pancreatitis Daughter 3 Jessa Heart disease Mother Carmen Kade Congestive hea rt failure Hyperlipidemia Mother Carmen Kade Hypertension Mother Carmen Kade Always had high blood pressure Kidney disease Mother Carmen Kade Obesity Mother Carmen Kade Other Mother Carmen Kade Renal failure Breast cancer Neg Hx Ovarian cancer Neg Hx Relation Name Status Comments Daughter 1 Nedra Alive Daughter 2 lorenzo Alive Daughter 3 Jessa Alive Mother Carmen Kade Social History Tobacco Use Types Packs/Day Years Used Date Smoking Tobacco: Never Smokeless Tobacco: Never Tobacco Cessation:Counseling Given: Not Answered Alcohol Use Standard Drinks/Week Comments Not Currently [...] Orientation Straight 12/18/2024 12 :47 PM EDT Last Filed Vital Signs Vital Sign Reading Time Taken Comments Blood Pressure 124/84 08/25/2024 10:20 AM EST Pulse 64 08/25/2024 10:20 AM EST Temperature 36.6 C (97.8 F) 08/25/2024 10:20 AM EST Respiratory Rate 18 08/25/2024 10:20 AM EST Oxygen Saturation 98% 09/05/2022 8:23 AM EST Inhaled Oxygen Concentration - - Weight 93.1 kg (205 lb 4 oz) 08/25/2024 10:20 AM EST Height 160 cm (5' 3 ) 05/09/2022 8:50 AM EDT Body Mass Index 36.36 05/09/2022 8:50 AM EDT Plan of Treatment Health Maintenance Due Date Last Done Comments Annual Gynecologic Pelvic an d Breast Exam 1967 TDAP/TD VACCINES (1 - Tdap) 1986 PAP SMEAR 1988 COLOGUARD 2012 COLON CANCER SCREENING 5 YEA R SIGMOIDOSCOPY 2012 COLONOSCOPY [address] CANCER SCREENING 2012 CT COLONOGRAPHY 2012 FECAL OCCULT BLOOD TEST 2012 FIT Testing (1 year) 2012 Pneumococcal Vaccine 50+ (1 of 1 - PCV) 2017 ANNUAL PHYSICAL 05/09/2022 INFLUENZA VACCINE 03/19/2025 06/30/2024, 08/30/2023, 05/21/2022 ZOSTER VACCINE (1 of 2) 08/25/2025 Post poned from 2017 (Product Unavailable) MAMMOGRAM 04/16/2027 04/16/2025, 04/01/2025 HEPATITIS C SCREENING Completed 04/01/2023 Procedures Procedure Name Priority Date/Time Associated Diagnosis Comments US BREAST RIGHT LIMITED Routine 04/16/2025 11:14 AM EDT Abnormal mammogram MAMMO DIAGNOSTIC DIGITAL TOMOSYNTHESIS RIGHT W CAD Routine 04/16/2025 9:40 AM EDT Abnormal mammogram MAMMO SCREENING DIGITAL TOMOSYNTHESIS BILATERAL W CAD Routine 04/01/2025 8:50 AM EDT Screening mammogram for breast cancer AMBRY GENETIC ASSESSMENT Routine 03/17/2025 9:23 AM EDT HEPATITIS C ANTIBODY Routine 04/01/2023 1:07 PM EDT Need for hepatitis C screening test from Last 3 Months or Most Recently Relevant to Health Maintenance Results * US Breast Right Limited (04/16/2025 [...] Garrido MD IMG US ORDERABLES Final Result * Mammo Diagnostic Digital Tomosynthesis Right With [...] please correlate nicely with the mammographic findings. Marc Matos MD IM MAMMOGRAPHY ORDERABLES Final Result * (ABNORMAL) Mammo Screening Digital Tomosynthesis Bilateral [...] MD IMG MAMMOGRAPHY ORDERABLES Fi nal Result * [email or web address] RISK ASSESSMENT QUESTIONNAIRE - , (03/17/2025 9:23 AM EDT) Pathologist [facility] Oneal 5.5 KRISSY [employer] NCCN NCCN not met [email or web address] Comment:High Risk Cancer Ris k Assessment 03/17/2025 9:23 AM EDT Keven Varela MD GENETIC TESTING Final Result [employer]
[address] [place] [address], * Hepatitis C Antibody (04/01/2023 1:07 PM EDT) Hepatitis C Ab Non-Reacti ve Non-Reacti ve 04/02/2023 12:15 AM EDT [facility] Blood Structure of left upper limb / Unknown Venipuncture / Unknown 04/01/2023 1:07 PM EDT 04/01/2023 1:08 PM EDT Narrative [facility] - 04/02/2023 12:15 AM EDT Results may be falsely decreased if patient taking Biotin. us Larry Mclaughlin MD LAB BLOOD ORDERABLES Final Resul t [facility]
[address] [place] [address], [place] [phone] from Last 3 Months or Most Recently Relevant to Health Maintenance Insurance [facility] PPO Care Teams Clay Structure Builder And Servicer Relationship Specialty Start Date End Date Larry Mclaughlin MD [address] [facility] 200 [place] [address] PCP - General Internal Medicine 03/20/22
--- OUTSIDE RECORDS SUMMARY | 2025-05-24 12:49 | XMS_ITS | Encounter Summary ---
Author Organization [facility] Address [address] [place] [address] Care Team Providers Care Tube Knitter Name Role Phone Larry Mclaughlin MD Primary Care Provider [phone] Encounter Details Date Type Department Care Team (Latest Contact Info) Description 04/16/2025 Travel Social History Tobacco Use Types Packs/Day Years [...] filedocumented in this encounter Care Teams Tube Knitter Relationship Specialty Start Date End Date Larry Mclaughlin MD [address] [facility] [address] [place] [address] PCP - General Internal Medicine 03/20/22 documented as of this encounter
--- OUTSIDE RECORDS SUMMARY | 2025-05-24 12:49 | XMS_ITS | Encounter Summary ---
Author Organization [facility] Address [address] [place] [address] Care Team Providers Care Gasoline Engine Inspector Name Role Phone Larry Mclaughlin MD Primary Care Provider [phone] Encounter Details Date Type Department Care Team (Latest Contact Info) Description 04/01/2025 Travel Social History Tobacco Use Types Packs/Day [...] on filedocumented in this encounter Care Teams Gasoline Engine Inspector Relationship Specialty Start Date End Date Larry Mclaughlin MD 100 [facility] 200 [place] [address] PCP - General Internal Medicine 03/20/22 documented as of this encounter
--- OUTSIDE RECORDS SUMMARY | 2025-05-24 12:49 | XMS_ITS | Encounter Summary ---
Author Organization [facility] Address [address] [place] [id number] Care Team Providers Care Driver Operator Name Role Phone Larry Mclaughlin MD Primary Care Provider [phone] Reason for Visit * Reason Onset Date Comments Med Refill 09/27/2022 Encounter Details Date Type Department Care Team (Late st Contact Info) Description 09/27/2022 Refill [facility] [address] [facility] 200 [place] [address] Larry Mclaughlin MD [address] [facility] [address] [place] [address] Social History Tobacco Use Types [...] on filedocumented in this encounter Care Teams Driver Operator Relationship Specialty Start Date End Date Larry Mclaughlin MD [address] [facility] [address] [place] [address] PCP - General Internal Medicine 03/20/22 documented as of this encounter
--- OUTSIDE RECORDS SUMMARY | 2025-05-24 12:49 | XMS_ITS | Data Portability ---
Author Organization [facility] CATHY Mccloud ADMIN Address [address] [place] [id number] Assessment Encounter Date Assessment Date Assessment LastModified by Organization Details LastModified Time 05/05/2024 05/05/2024 Diagnosis Skin infection and insect bite To take medicine as prescribed Patient was instructed to apply warm compresses to affected area and recommended OTC NSAID for swelling. Instructed patient to return for significant streaking of skin, additional redness or swelling, [id number] Not available 05/05/2024 10:43:54 Plan of Treatment Reminders Order Date Submit Date Provider Last Modified By Organization Details Last Modified Time Details Appointments None recorded. Lab None recorded. Referral None recorded. Procedures None recorded. Surgeries None recorded. Imaging None recorded. Medication Orders Bactrim DS 800 mg-160 mg tablet 2023 024 [facility], [address] [place] [address], [id number], 4 10:44:31 mupirocin 2 % topical ointment 2023 024 [facility], [address] [place] [address], [id number], 4 10:44:28 Patient TargetsNo targets recorded. Patient InstructionsNo instructions recorded. Reason for Referral None Reported. Medical Equipment None Reported. Allergies No known drug allergies Medications Name Sig Start Date Stop Date Status Note LastModified by Organization Details LastModified Time losartan 50 mg tablet active Not Available Not Available Not Available clonidine HCl 0.1 mg tablet active Not Available Not Availabl e Not Available atorvastatin 10 mg tablet active Not Available Not Available Not Available meloxicam 15 mg tablet active Not Available Not Available No t Available ondansetron HCl 4 mg tablet active Not Available Not Available Not Available sulfamethoxazo le 800 mg-trimethopri m 160 mg tablet Take 1 tablet every 12 hours by oral route for 10 days. active Not Available Not Available No t Available oxycodone-acet aminophen 5 mg-325 mg tablet TAKE 1 TABLET BY MOUTH EVERY 6 HOURS NEEDED FOR PAIN active Not Available Not Available No t Available cephalexin 500 mg capsule active Not Available Not Available N ot Available mupirocin 2 % topical ointment APPLY A SMALL AMOUNT TO THE AFFECTED AREA BY TOPICAL ROUTE 3 TIMES PER DAY for 7 days active Not Available Not Available No t Available methylpredniso lone 4 mg tablets in a dose pack active Not Available Not Available No t Available dextroamphetam ine-amphetamin e ER 30 mg 24hr capsule,extend release active Not Available Not Available Not Available Adderall XR 25 mg capsule,extend ed release active Not Available Not Available N ot Available Florastor 250 mg capsule active Not Available Not Available N ot Available hydrochlorothi azide 12.5 mg tablet active Not Available Not Available Not Available Vitals Date Recorded Body weight Body temperature Provider N dontae and Address Organization Details Last Updated DateTime 05/05/2024 34684.84 g 98.7 [degF] Veronica Morrisner [facility] [place] 05/05/2024 10:21:55 Social History None recorded. Functional Status None recorded. Mental Status None recorded. Family History Nothing Reported. Medical History No medical history recorded. Gynecological HistoryNo gynecological history recorded. Obstetrics History GPAL:G 0 P 0 0 0 0 Past Encounters Encounter ID Performer Location Encounter Start Date Encounter Closed Date Diagnosis/Indication Diagnosis SNOMED-CT Code Diagnosis ICD10 Code Diagnosis IMO Codes Diagnosis Note [id number] [facility] [address] [place] [address] 05/05/2024 10:16:16 05/05/2024 10:45:34 Infection of skin 651846129 L08.9 Bite of insect 735440902 W57.XXXA Health Concerns Section Related Observation LastModified by Organization Detai ls LastModified Time None Recorded Concern Status LastModified by Organization Details LastModified Time None Recorded Advance Directives Directive None Recorded Payers Insurance Date Sequence Insurance Name Policy Number Policy Biggs Covered Member ID Biggs Member ID Guarantor Name 05/05/2024 1 [facility] [id number] Ginny Michael [id number] Ginny Michael Notes Date Note Type Note Provider Name and Address Organization Details Recorded Time 05/05/2024 text/html Rash/Skin LesionReported by PatientHPIFor quality, patient reportsitchy,painful ,red, andsingle. For severity, patient reportsmild. For onset/timing, patient reportsabrupt onset. For context, patient reportsno new detergents or skin products,no one else with similar rash, andnot scratching. For alleviating factors, patient reportsnothing gives relief. For aggravating factors, patient reportsnothing makes it worse. For associated symptoms, patient reportsno fever,no cold symptoms,no nausea,no vomiting,no diarrhea,no urinary symptoms,no chills,no fatigue, andno change in weight. For treatment history, patient reportsno history of treatment. For location, (behind left ear). For duration, (symptoms began yesterday).ROS as noted in the HPI Roslyn Baker, SRI[facility]AN[facility] [address] , [place], [address], [place] [facility] [place] [facility] [place] 05/05/2024 10:45:02 OBGyn Episode No OBEpisode recorded.
[2025-05-24 13:16] LABS: Hematocrit 40.9 % (37.0-47.0); Hemoglobin 13.8 g/dL (12.2-16.2); Immature Granulocytes % 0.3 %; Mean Corpuscular HGB Conc 33.7 g/dL (31.8-35.4); Mean Corpuscular Hemoglobin 29.9 pg (27.0-31.2); Mean Corpuscular Volume 88.5 fl (81-99); Nucleated Red Blood Cells % 0 %; Platelet Count 299 K/mm3 (142-424); Red Blood Count 4.62 M/mm3 (4.20-5.40); Red Cell Distribution Width-SD 40.7 fL; White Blood Count 9.9 K/mm3 (4.8-10.8)
[2025-05-24 13:53] LABS: Anion Gap 15.9 mEq/L (5-15); Blood Urea Nitrogen 17 mg/dl (7-17); Calcium 10.0 mg/dl (8.4-10.2); Carbon Dioxide 29 mmol/L (22.0-30.0); Chloride 98 mmol/L (98-107); Creatinine,Serum 0.80 mg/dl (0.52-1.04); Estimated Glomerular Filt Rate 74 ml/min (>60); GFR (African American) 89 ML/MIN (>60); Glucose 93 mg/dl (74-100); Potassium 3.9 mmoL/L (3.5-5.1); Sodium 139 mmol/L (136-145)
== END 2025-05-24 23:59 | disposition home or self-care (01) ==
LOC: LAB 12:47
PROVIDERS: PCP Pediatrics; Visit Provider Nurse Practitioner Family
DX: Z01.812 Encounter for preprocedural laboratory examination (principal)
CPT/HCPCS: 36415; 80048; 85025